=== PATIENT | male | born 2000 | race Hispanic/Latino ===

== ENCOUNTER 2022-05-13 18:04 | Emergency (ER) | payer OTHER ==
[~2022-05-13] VITALS: Ht 182.9 cm; Wt 84.8 kg
[2022-05-13] MEDS ORDERED: NAPROXEN500 MG PO ×2 (21:00→21:15)
[2022-05-13] MEDS ORDERED: FLONASE AL50 MCG/ACT ×2 (21:00→21:15)
[2022-05-13 21:22] VITALS: BP 122/70
== END 2022-05-13 21:22 | disposition home or self-care (01) | DRG 153 ==
LOC: ED 18:04
DX: J31.0 Chronic rhinitis (principal); V49.9XXA Car occupant (driver) (passenger) injured in unspecified traffic accident, initial encounter